=== PATIENT | female | born 2000 | race Caucasian/White ===

== ENCOUNTER 2021-08-15 00:35 | Emergency (ER) | payer BC, SELFPAY ==
[2021-08-15 00:50] VITALS: BP 111/74; PULSE 116; RESP 25; TEMP 36.5; O2SAT 100; BMI 22.4
--- NOTE | 2021-08-15 01:21 | ED_ITS ---
HPI - Alcohol General Chief Complaint: ETOH/Substance Use Stated Complaint: ETOH Time Seen by Provider: 08/15/21 00:52 Source: patient Mode of arrival: EMS History of Present Illness HPI narrative: 21-year-old female who is brought in by EMS from [facility] when they were called by her friend after patient was noted to have shots of Tequila and developed multiple episodes of nausea and vomiting afterwards. Patient continues to state that she is fine, and that she had ?too much to drink?. Patient does further endorses that couple months ago she was diagnosed with anxiety and depression and was started on Lexapro. Patient states she has not taken the medication at all and otherwise denies SI/HI. Related Data Home Medications Medication Instructions Recorded Confirmed escitalopram oxalate 10 mg tablet 10 mg PO DAILY 08/15/21 08/15/21 (Lexapro) Allergies Allergy/AdvReac Type Severity Reaction Status Date / Time No Known Allergies Allergy Verified 08/15/21 01:23 Review of Systems Review of Systems: Pertinent positives and negatives as stated in HPI 10 point review of systems otherwise negative. PMFSH Past Medical History Source: nursing notes reviewed Social History Social History Alcohol intake: current Advance Directives: No Patient : No Physical Exam ED Vital Signs: Vital Signs - 24 hr 08/15/21 00:50 08/15/21 01:58 08/15/21 04:19 Temperature 97.7 F 98.4 F Pulse Rate 116 H 84 93 Respiratory Rate 25 H 18 18 Blood Pressure 111/74 102/72 108/72 Pulse Oximetry 100 99 100 BMI result Body Mass Index 22.4 VITAL SIGNS: Reviewed. GENERAL: Well developed, well nourished, in no acute distress. HEAD: Normocephalic/atraumatic EYES: PERRLA, EOMI EARS: Ext canals without abnormality OROPHARYNX: no oral lesions noted, posterior pharynx clear LUNGS: Normal breath sounds. No adventitious sounds or accessory muscle use. SpO2<100> CARDIOVASCULAR: Regular rate and rhythm without noted murmurs ABDOMEN: Soft, non-tender, non-distended with bowel sounds. NEUROLOGIC: Alert and oriented x 4. Strength and sensation to light touch were grossly intact x 4. PSYCH: Tearful Course Course Course Narrative: 21-year-old female with history and clinical presentation suggestive of acute alcohol intoxication and tearful secondary to intoxication. Patient will be provided with IV fluids, p.o. challenge, and obtain an initial BAL and discharged after clinically sober. All investigations reviewed. MDM - Alcohol Lab Data Labs: Lab Results 08/15/21 Range/Units 02:10 Ethyl Alcohol 176 mg/dL Discharge Plan Discharge Clinical Impression: Alcoholic intoxication Patient Disposition: Still a Patient Instructions: Alcohol Intoxication (ED) Additional Instructions: Follow-up with your doctor in 2-3 days for re-evaluation. Return to the ER for worsening symptoms. Prescriptions: No Action escitalopram oxalate [Lexapro] 10 mg Tablet 10 mg PO DAILY 0RF
--- NOTE | 2021-08-15 01:24 | PC.NURSE ---
Patient crying, talking on the phone to her mother.
[2021-08-15 01:58] VITALS: BP 102/72; PULSE 84; RESP 18; O2SAT 99
[2021-08-15] MEDS: 0.9 % Sodium Chloride 1,000 ML 999 ML IV (02:11)
[2021-08-15 02:33] LABS: Ethanol 176 mg/dL
[2021-08-15 04:19] VITALS: BP 108/72; PULSE 93; RESP 18; TEMP 36.9; O2SAT 100
[2021-08-15 06:09] VITALS: BP 104/58; PULSE 84; RESP 14; O2SAT 96
== END 2021-08-15 07:32 | disposition home or self-care (01) ==
PROVIDERS: Emergency Provider Student in an Organized Health Care Education/Training Program
DX: F10.129 Alcohol abuse with intoxication, unspecified (principal); Y90.6 Blood alcohol level of 120-199 mg/100 ml; F32.A Depression, unspecified; F41.9 Anxiety disorder, unspecified; Z79.899 Other long term (current) drug therapy
CPT/HCPCS: 36415; 82077; 96360; 99284; 99285